=== PATIENT | male | born 1990 | race African-American/Black ===

== ENCOUNTER 2017-07-07 19:02 | Emergency (ER) | payer MEDICAID ==
[~2017-07-07] VITALS: Ht 177.8 cm; Wt 64.4 kg
[2017-07-07 19:19] VITALS: BP 128/78
[2017-07-07] MEDS ORDERED: metroNIDAZOLE 500 MG TABLET ONE (19:58)
[2017-07-07] MEDS ORDERED: CEFTRIAXONE 1,000 MG ONE (19:59)
[2017-07-07] MEDS ORDERED: AZITHROMYCIN 250 MG TABLET ONE (19:59)
[2017-07-07] MEDS ORDERED: CEFTRIAXONE 250 MG IM ONE (20:00)
[2017-07-07] MEDS ORDERED: metroNIDAZOLE 500 MG TABLET PO ONE (20:00)
[2017-07-07] MEDS ORDERED: AZITHROMYCIN 500 MG TABLET PO ONE (20:00)
== END 2017-07-07 20:34 | disposition left against medical advice (07) ==
LOC: ED 20:15
DX: Z20.2 Contact with and (suspected) exposure to infections with a predominantly sexual mode of transmission (principal)
CPT/HCPCS: 96372; 99283; J0696

== ENCOUNTER 2018-06-05 04:15 | Emergency (ER) | payer MEDICAID ==
[~2018-06-05] VITALS: Ht 170.2 cm; Wt 70.0 kg
[2018-06-05 04:16] VITALS: BP 127/89
== END 2018-06-05 05:00 | disposition home or self-care (01) ==
LOC: ED 04:58
DX: K08.89 Other specified disorders of teeth and supporting structures (principal)
CPT/HCPCS: 99283